=== PATIENT | female | born 1935 | race African-American/Black ===

== ENCOUNTER → 2016-12-28 | Outpatient (CLI) | payer MEDICARE ==
--- NOTE | 2016-12-28 10:53 | RAD ---
CT of the chest without contrast, 12/28/2016: History: Lung nodule Noncontrast scans were obtained with multiplanar reconstructions produced. Comparison is made to a study from 09/08/2004. There is calcific plaquing of the thoracic aorta without evidence of aneurysm. The heart is of normal size. There is a mildly enlarged subcarinal lymph node measuring 12 x 24 mm in diameter on the axial images. This was not present on an old study from 09/08/2004. Several other small mediastinal lymph nodes are seen without definite pathologic enlargement. There is an irregular spiculated parenchymal lesion in the lateral aspect of the left lower lobe as best seen on image 184 of series 5. It measures approximately 11 x 7 mm. It is partially solid. On the 2004 exam there was only a hazy groundglass opacity in this region. This lesion appears larger than on the 05/26/2016 CT abdomen study, although that may be due to the fact that the lesion was only partially visualized on the upper most slices of that abdomen study. There is a 2 to 3 mm nodule in the lateral aspect of the left upper lobe as seen on image 69 of series #5. It appears to be unchanged since the 2004 exam. There is a 4 mm perifissural nodule in the inferior aspect of the right upper lobe abutting the minor fissure as demonstrated on image 150 of series #5. This appears to be unchanged since the 2004 exam. There are a few scattered linear opacities in both lungs compatible with scars. These include a 8 x 3 mm opacity in the posterior costophrenic angle on the right as delineated on image 249 of series #5. Changes of a left mastectomy are evident. No axillary adenopathy is identified. IMPRESSION: 1. A small spiculated nodule in the left lower lobe has increased in size since 2003. A slowly growing neoplasm is a possibility. 2. There are couple of other stable tiny pulmonary nodules as well as linear parenchymal opacities probably representing scars. 3. A mildly enlarged subcarinal lymph node has developed since 2003. 4. PET/CT scanning may be useful for further evaluation. PQRS Compliance Statement: One or more of the following individualized dose reduction techniques were utilized for this examination: 1. Automated exposure control 2. Adjustment of the mA and/or kV according to patient size 3. Use of iterative reconstruction technique
--- NOTE | 2016-12-28 11:20 | RAD ---
EXAM: Pelvic sonogram. HISTORY: Pain. TECHNIQUE: Transabdominal and transvaginal sonographic imaging of the pelvis was performed. COMPARISON: None. FINDINGS: The transvaginal portion of the exam is technically limited. The uterus is retroverted and measures 5.8 x 3.5 x 2.7 cm. The endometrial stripe measures 4.3 cm transabdominally. The right ovary measures 1.8 x 1.8 x 1.4 cm transvaginally. The left ovary measures 1.5 x 1.6 x 1.1 cm transvaginally. There is blood flow within both ovaries. There is a 2.3 cm rounded hypoechoic structure along the junction of the lower uterine segment and vagina. There is no pelvic free fluid. IMPRESSION: 1. Technically limited exam. The pelvic structures not well seen transvaginally. The ovaries are unremarkable. 2. 2.3 cm rounded hypoechoic structure adjacent to the lower uterine segment and vagina. There is no posterior through transmission to suggest a cystic etiology. However, no internal blood flow is seen. Sonographic follow-up or pelvic MRI can be performed to confirm stability or for better characterization.
== END | disposition home or self-care (01) ==
LOC: US 09:27
PROVIDERS: ATTEND Family Medicine
DX: R91.1 Solitary pulmonary nodule (principal); I70.0 Atherosclerosis of aorta; R59.0 Localized enlarged lymph nodes
CPT/HCPCS: 71250; 76830; 76856

== ENCOUNTER → 2017-06-17 | Outpatient (CLI) | payer MEDICARE ==
--- NOTE | 2017-06-17 15:32 | RAD ---
Examination: Ultrasound left chest wall History: history of breast cancer, mastectomy, left chest wall pain Comparison: None available Findings: Ultrasound of the left chest inferior to the mastectomy scar demonstrate no definite evidence of mass or lesion. Left axillary area demonstrated no definite evidence of mass or lesion. Impression Negative findings. BI-RADS Category 1.
== END | disposition home or self-care (01) ==
LOC: US 13:40
PROVIDERS: ATTEND Physician Assistant
DX: R07.89 Other chest pain (principal); Z85.3 Personal history of malignant neoplasm of breast
CPT/HCPCS: 76641

== ENCOUNTER → 2017-11-07 | Outpatient (CLI) | payer MEDICARE ==
--- NOTE | 2017-11-08 08:38 | RAD ---
DATE: 11/07/2017 EXAM: MAMMO ABRAHAM SCREEN RT HISTORY: Routine screening COMPARISON: 11/03/2016 This study was interpreted with the benefit of Computerized Aided Detection (CAD). FINDINGS: Breast Density: HETERO The breast parenchyma Is heterogeneouslyy dense, which could reduce sensitivity of mammography. Breast parenchyma level C. There are no dominant suspicious masses, suspicious microcalcifications or evidence of architectural distortion. IMPRESSION: Negative mammogram BI-RADS CATEGORY: 1 NEGATIVE RECOMMENDED FOLLOW-UP: 12M 12 MONTH FOLLOW-UP PQRS compliance statement: Patient information was entered into a reminder system with a target due date 11/07/2018 for the next mammogram. Mammography is a sensitive method for finding small breast cancers, but it does not detect them all and is not a substitute for careful clinical examination. A negative mammogram does not negate a clinically suspicious finding and should not result in delay in biopsying a clinically suspicious abnormality. "Our facility is accredited by the [employer] Mammography Program."
== END | disposition home or self-care (01) ==
LOC: MAMMO 13:54
PROVIDERS: ATTEND Family Medicine
DX: Z12.31 Encounter for screening mammogram for malignant neoplasm of breast (principal); Z85.3 Personal history of malignant neoplasm of breast
CPT/HCPCS: 77063; 77067

== ENCOUNTER → 2018-09-18 | Outpatient (CLI) | payer MEDICARE ==
[2018-09-18 12:44] LABS: BASO % 1 % (0-3); EOS # 0.1 x10^3/uL (0.0-0.7); EOS % 3 % (0-3); HEMOGLOBIN 12.8 g/dL (12.0-15.5); LYMPH # 1.6 x10^3/uL (1.0-4.8); LYMPH % 36 % (24-48); MEAN CORPUSCULAR HEMOGLOBIN 29 pg (25-35); MEAN CORPUSCULAR HGB CONC 33 g/dL (31-37); MEAN CORPUSCULAR VOLUME 87 fL (79-100); MONO # 0.4 x10^3/uL (0.0-1.1); MONO % 8 % (0-9); NEUT # 2.4 x10^3uL (1.8-7.7); NEUT % 52 % (31-73); PLATELET COUNT 196 x10^3/uL (140-400); RED BLOOD COUNT 4.48 x10^6/uL (3.50-5.40); RED CELL DISTRIBUTION WIDTH 14.1 % (11.5-14.5); WHITE BLOOD COUNT 4.6 x10^3/uL (4.0-11.0)
[2018-09-18 12:55] LABS: ALBUMIN 3.5 g/dL (3.4-5.0); CALCIUM 9.4 mg/dL (8.5-10.1); GFR 64.2; TOTAL BILIRUBIN 0.5 mg/dL (0.2-1.0); TOTAL PROTEIN 7.1 g/dL (6.4-8.2)
== END | disposition home or self-care (01) ==
LOC: LAB 11:50
PROVIDERS: ATTEND Internal Medicine Hematology & Oncology
DX: C50.912 Malignant neoplasm of unspecified site of left female breast (principal); Z17.0 Estrogen receptor positive status [ER+]
CPT/HCPCS: 36415; 80053; 85025; 86300

== ENCOUNTER → 2018-11-16 | Outpatient (CLI) | payer MEDICARE ==
--- NOTE | 2018-11-16 15:05 | RAD ---
DATE: 11/16/2018 EXAM: MAMMO ABRAHAM SCREEN RT HISTORY: Previous left mastectomy COMPARISON: 11/07/2017 This study was interpreted with the benefit of Computerized Aided Detection (CAD). Breast Density: HETERO The breast parenchyma is heterogenously dense, which could reduce sensitivity of mammography. Breast parenchyma level C. FINDINGS: 2-D and 3-D tomosynthesis imaging was performed in CC and MLO projections. The fibroglandular pattern is heterogeneous and slightly nodular in character. No new or enlarging breast densities are seen. Benign type calcifications are present. No suspicious microcalcifications have developed. IMPRESSION: Stable mammograms without evidence of malignancy. BI-RADS CATEGORY: 2 BENIGN FINDING(S) RECOMMENDED FOLLOW-UP: 12M 12 MONTH FOLLOW-UP PQRS compliance statement: Patient information was entered into a reminder system with a target due date for the next mammogram. Mammography is a sensitive method for finding small breast cancers, but it does not detect them all and is not a substitute for careful clinical examination. A negative mammogram does not negate a clinically suspicious finding and should not result in delay in biopsying a clinically suspicious abnormality. "Our facility is accredited by the [employer] Mammography Program."
== END | disposition home or self-care (01) ==
LOC: MAMMO 12:38
PROVIDERS: ATTEND Family Medicine
DX: Z12.31 Encounter for screening mammogram for malignant neoplasm of breast (principal); Z85.3 Personal history of malignant neoplasm of breast; Z90.12 Acquired absence of left breast and nipple
CPT/HCPCS: 77063; 77067

== ENCOUNTER → 2019-01-31 | Outpatient (CLI) | payer MEDICARE ==
[2019-01-31 14:10] LABS: BASO # 0.1 x10^3/uL (0.0-0.2); BASO % 2 % (0-3); EOS # 0.1 x10^3/uL (0.0-0.7); EOS % 3 % (0-3); HEMATOCRIT 40.2 % (36.0-47.0); HEMOGLOBIN 13.1 g/dL (12.0-15.5); LYMPH # 1.7 x10^3/uL (1.0-4.8); LYMPH % 37 % (24-48); MEAN CORPUSCULAR HEMOGLOBIN 28 pg (25-35); MEAN CORPUSCULAR HGB CONC 33 g/dL (31-37); MEAN CORPUSCULAR VOLUME 87 fL (79-100); MONO # 0.3 x10^3/uL (0.0-1.1); MONO % 8 % (0-9); NEUT # 2.3 x10^3uL (1.8-7.7); NEUT % 50 % (31-73); PLATELET COUNT 184 x10^3/uL (140-400); RED BLOOD COUNT 4.61 x10^6/uL (3.50-5.40); RED CELL DISTRIBUTION WIDTH 14.6 % (11.5-14.5); WHITE BLOOD COUNT 4.5 x10^3/uL (4.0-11.0)
[2019-01-31 14:20] LABS: ALBUMIN 3.6 g/dL (3.4-5.0); CALCIUM 9.4 mg/dL (8.5-10.1); CREATININE 1.1 mg/dL (0.6-1.0); GFR 57.5; POTASSIUM 3.7 mmol/L (3.5-5.1); TOTAL BILIRUBIN 0.5 mg/dL (0.2-1.0); TOTAL PROTEIN 7.3 g/dL (6.4-8.2)
== END | disposition home or self-care (01) ==
LOC: LAB 12:58
PROVIDERS: ATTEND Internal Medicine Hematology & Oncology
DX: C50.912 Malignant neoplasm of unspecified site of left female breast (principal); Z17.0 Estrogen receptor positive status [ER+]
CPT/HCPCS: 36415; 80053; 85025; 86300

== ENCOUNTER → 2019-02-08 | Outpatient (CLI) | payer MEDICARE ==
[2019-02-08] MEDS: IOHEXOL 300 MG/ML 75 ML VIAL. IV ONE (11:02)
--- NOTE | 2019-02-08 18:05 | RAD ---
CT of the chest with contrast, 02/08/2019: HISTORY: Breast cancer, follow-up lung nodule Multidetector CT imaging was performed following an IV bolus injection of iodinated contrast material. Comparison is made to a study from 10/05/2018. There is an 8 mm spiculated nodule in the lateral aspect of the left lower lobe as seen on axial image 53 of series #4. A 4 mm subpleural nodule is noted posteriorly in the right lung base on image 68 of series #4. These appear unchanged since 10/05/2018, study as well as an old exam from 12/28/2016. Two tiny nodules in the lateral aspect of the left upper lobe seen on images 19 and 14 are also unchanged. No new pulmonary nodularity or consolidation is seen. There is no evidence of pleural fluid. Several small mediastinal lymph nodes are again seen. The right paratracheal nodes are of borderline size. These findings are unchanged. There is calcific plaquing of the thoracic aorta. The left breast is surgically absent. Surgical clips are present in the left axillary region. No axillary adenopathy is seen. IMPRESSION: 1. Stable small bilateral pulmonary nodules suggesting a benign etiology. 2. Stable mediastinal lymph nodes. 3. No new chest abnormality is detected. PQRS Compliance Statement: One or more of the following individualized dose reduction techniques were utilized for this examination: 1. Automated exposure control 2. Adjustment of the mA and/or kV according to patient size 3. Use of iterative reconstruction technique Electronically signed by: Delfin Delacruz MD (02/08/2019 6:02 PM) [facility]
== END | disposition home or self-care (01) ==
LOC: CT 10:25
PROVIDERS: ATTEND Internal Medicine Hematology & Oncology
DX: R91.8 Other nonspecific abnormal finding of lung field (principal); Z85.3 Personal history of malignant neoplasm of breast; N64.59 Other signs and symptoms in breast
CPT/HCPCS: 71260; Q9967

== ENCOUNTER → 2019-08-03 | Outpatient (CLI) | payer MEDICARE ==
[2019-08-03 17:10] LABS: BASO % 1 % (0-3); EOS # 0.2 x10^3/uL (0.0-0.7); EOS % 3 % (0-3); HEMOGLOBIN 13.3 g/dL (12.0-15.5); LYMPH # 1.9 x10^3/uL (1.0-4.8); LYMPH % 28 % (24-48); MEAN CORPUSCULAR HEMOGLOBIN 28 pg (25-35); MEAN CORPUSCULAR HGB CONC 32 g/dL (31-37); MEAN CORPUSCULAR VOLUME 89 fL (79-100); MONO # 0.5 x10^3/uL (0.0-1.1); MONO % 8 % (0-9); NEUT # 4.1 x10^3uL (1.8-7.7); NEUT % 61 % (31-73); PLATELET COUNT 214 x10^3/uL (140-400); RED BLOOD COUNT 4.72 x10^6/uL (3.50-5.40); RED CELL DISTRIBUTION WIDTH 13.9 % (11.5-14.5); WHITE BLOOD COUNT 6.7 x10^3/uL (4.0-11.0)
[2019-08-03 17:25] LABS: ALBUMIN 3.4 g/dL (3.4-5.0); ALBUMIN/GLOBULIN RATIO 0.9 (1.0-1.7); CALCIUM 9.5 mg/dL (8.5-10.1); CREATININE 0.9 mg/dL (0.6-1.0); GFR 72.4; POTASSIUM 3.5 mmol/L (3.5-5.1); TOTAL BILIRUBIN 0.3 mg/dL (0.2-1.0); TOTAL PROTEIN 7.1 g/dL (6.4-8.2)
== END | disposition home or self-care (01) ==
LOC: LAB 15:21
PROVIDERS: ATTEND Internal Medicine Hematology & Oncology
DX: Z08 Encounter for follow-up examination after completed treatment for malignant neoplasm (principal); Z85.3 Personal history of malignant neoplasm of breast
CPT/HCPCS: 36415; 80053; 85025; 86300

== ENCOUNTER → 2019-08-08 | Outpatient (CLI) | payer MEDICARE ==
[~2019-08-08] MED LIST: IOHEXOL 240 MG/ML 50ML VIAL. ONE; IOHEXOL 300 MG/ML 75 ML VIAL. IV ONE
--- NOTE | 2019-08-08 15:35 | RAD ---
EXAM: Abdomen and pelvis CT without intravenous contrast. HISTORY: Right lower quadrant pain. TECHNIQUE: Computed tomographic images of the abdomen and pelvis were obtained without intravenous contrast. Multiplanar reformatting was performed. *One or more of the following individualized dose reduction techniques were utilized for this examination: 1. Automated exposure control. 2. Adjustment of the mA and/or kV according to patient size. 3. Use of iterative reconstruction technique. COMPARISON: 02/08/2019. FINDINGS: Evaluation of the lower thorax demonstrates a few groundglass and nodular opacities, including a 1.2 cm spiculated nodule within the left lower lobe. These are described on the chest CT report; the same date. There is slight bronchial wall thickening. There is scarring within the lingula. There is a small hiatal hernia. No hepatic lesion is seen. The gallbladder, pancreas, spleen and adrenal glands are unremarkable. There is slight renal cortical lobulation likely due to scarring. No suspicious renal lesion or hydronephrosis is seen. There is colonic diverticulosis. There is no convincing diverticulitis. There is no bowel obstruction. There is aortobiiliac atherosclerosis. There is calcification along the right lateral aspect of the uterine fundus, likely associated with the right ovary or calcified uterine fibroid. The urinary bladder is unremarkable. There is no lymphadenopathy. There is degenerative change involving the spine. This includes disc bulges, facet arthropathy, endplate osteophytosis and mild listhesis at multiple levels. There is severe central canal stenosis due to degenerative change and slight epidural lipomatosis at L4-L5. There is surgical material within the right lower ventral abdominal wall likely due to prior hernia repair. IMPRESSION: 1. Colonic diverticulosis. 2. Pulmonary nodules and groundglass opacities. Please refer to the separate report for the chest CT on the same date for characterization of these findings. 3. Small hiatal hernia and findings likely due to prior right inguinal hernia repair. 4. Multilevel degenerative change involving the lumbar spine, primarily at L4-L5. Electronically signed by: Alexia Dover MD (08/08/2019 3:32 PM) [place] [id number]
== END | disposition home or self-care (01) ==
LOC: CT 09:49
PROVIDERS: ATTEND Family Medicine
DX: K57.30 Diverticulosis of large intestine without perforation or abscess without bleeding (principal); K44.9 Diaphragmatic hernia without obstruction or gangrene; J44.9 Chronic obstructive pulmonary disease, unspecified; R91.8 Other nonspecific abnormal finding of lung field; I70.0 Atherosclerosis of aorta; I70.8 Atherosclerosis of other arteries; M48.061 Spinal stenosis, lumbar region without neurogenic claudication; E88.2 Lipomatosis, not elsewhere classified; M46.90 Unspecified inflammatory spondylopathy, site unspecified; M25.78 Osteophyte, vertebrae; I10 Essential (primary) hypertension; Z90.49 Acquired absence of other specified parts of digestive tract
CPT/HCPCS: 74176

== ENCOUNTER → 2019-11-01 | Outpatient (CLI) | payer MEDICARE ==
--- NOTE | 2019-11-01 13:36 | RAD ---
2 views the right hip and a single AP view the pelvis without comparison for right hip pain. FINDINGS: There is no fracture, dislocation, or acute osseous abnormality identified. Joints and soft tissues are grossly unremarkable though there is mild osteoarthritis of both hips. Degenerative changes are seen in the lumbosacral region as well, with a transitional lumbosacral vertebral body. IMPRESSION: 1. No acute osseous abnormality. Electronically signed by: Syd Lozano MD (11/01/2019 1:32 PM) [id number]
== END | disposition home or self-care (01) ==
LOC: CT 12:52
PROVIDERS: ATTEND Internal Medicine Hematology & Oncology
DX: M16.0 Bilateral primary osteoarthritis of hip (principal); M47.817 Spondylosis without myelopathy or radiculopathy, lumbosacral region
CPT/HCPCS: 73502

== ENCOUNTER → 2019-11-20 | Outpatient (CLI) | payer MEDICARE ==
--- NOTE | 2019-11-21 18:23 | RAD ---
Examination: MAMMO ABRAHAM SCREEN RT History: Routine screening. Left mastectomy in 2000. Comparison/Correlation: 10/28/2015, 11/03/2016, 11/07/2017, 11/16/2018 mammographic exams Findings: MLO and CC images of the right breast were obtained. 3-D imaging was also performed. Scattered fibroglandular densities are present. No suspicious calcification, masses, or distortion. Impression: BI-RADS Category 1-negative. Annual mammographic evaluation recommended. Electronically signed by: Dedrick Hood MD (11/21/2019 6:20 PM) [id number]
== END | disposition home or self-care (01) ==
LOC: MAMMO 12:39
PROVIDERS: ATTEND Family Medicine
DX: Z12.31 Encounter for screening mammogram for malignant neoplasm of breast (principal); Z90.12 Acquired absence of left breast and nipple
CPT/HCPCS: 77063; 77067

== ENCOUNTER → 2020-03-14 | Outpatient (CLI) | payer MEDICARE ==
[~2020-03-14] MED LIST changes: -IOHEXOL 240 MG/ML 50ML VIAL. ONE
[2020-03-14 14:08] LABS: ALBUMIN 3.6 g/dL (3.4-5.0); CALCIUM 9.6 mg/dL (8.5-10.1); GFR 64.1; POTASSIUM 3.9 mmol/L (3.5-5.1); TOTAL BILIRUBIN 0.6 mg/dL (0.2-1.0); TOTAL PROTEIN 7.2 g/dL (6.4-8.2)
--- NOTE | 2020-03-14 15:57 | RAD ---
CT scan of the chest with contrast 03/14/2020 CLINICAL HISTORY: History of pulmonary nodule. TECHNIQUE: After the intravenous administration of 75 cc of 350, contiguous, 3 mm axial sections were obtained through the chest and upper abdomen. One or more of the following individualized dose reduction techniques were utilized for this study: 1. Automated exposure control. 2. Adjustment of the mA and/or kV according to patient size. 3. Use of iterative reconstruction technique. FINDINGS: Comparison study is dated 08/08/2019. The patient is post left mastectomy. Surgical clips are seen within the left axilla. No hilar, mediastinal or axillary lymphadenopathy is seen. Atherosclerotic calcification of the thoracic aorta and its branches is noted. The thoracic aorta tapers normally. The heart is normal in size. A 1.2 cm irregular nodule is seen within the left lower lobe which is unchanged from the previous examination. A 3 mm nodule is seen lateral to this which is unchanged. A 6 mm groundglass opacity is seen involving the right upper lobe, unchanged. A 7 mm pleural-based nodule is seen involving the inferior aspect of the right lower lobe. This is unchanged. A 2 mm nodule seen involving the left upper lobe, unchanged. A 4 mm nodule is seen within the left lower lobe which is unchanged. No new nodule is seen. No area of consolidation is noted. No pneumothorax or pleural effusion is seen. Images through the upper abdomen demonstrate atherosclerotic calcification of the abdominal aorta and its branches. Degenerative changes are seen involving the thoracic spine. IMPRESSION: Stable CT appearance of the nodules involving both lungs as discussed above. No new pulmonary nodule is seen. Electronically signed by: Keith Tovar MD (03/14/2020 3:54 PM) [id number]
== END ==
LOC: LAB 13:10
PROVIDERS: ATTEND Internal Medicine Hematology & Oncology
DX: R91.8 Other nonspecific abnormal finding of lung field (principal); I70.0 Atherosclerosis of aorta; Z90.12 Acquired absence of left breast and nipple; Z85.3 Personal history of malignant neoplasm of breast
CPT/HCPCS: 36415; 71260; 80053; Q9967

== ENCOUNTER → 2020-04-25 | Outpatient (CLI) | payer MEDICARE ==
--- NOTE | 2020-04-25 17:48 | RAD ---
EXAM: Frontal pelvis with bilateral two-view hip. HISTORY: Bilateral hip pain. COMPARISON: 11/01/2019. FINDINGS: No fractures are identified within the pelvis or either proximal femur. The joint spaces of both hips are maintained. There is mildly decreased femoral head/neck offset anteriorly bilaterally. IMPRESSION: 1. Correlate for mild femoroacetabular impingement anteriorly bilaterally. Electronically signed by: Butch Henriquez MD (04/25/2020 5:45 PM) [id number]
== END ==
LOC: DXRAD 11:03
PROVIDERS: ATTEND Physician Assistant
DX: M25.552 Pain in left hip (principal); M25.551 Pain in right hip
CPT/HCPCS: 73521

== ENCOUNTER → 2020-09-05 | Outpatient (CLI) | payer MEDICARE ==
[2020-09-05 13:02] LABS: BASO % 1 % (0-3); EOS # 0.2 x10^3/uL (0.0-0.7); EOS % 3 % (0-3); HEMATOCRIT 40.3 % (36.0-47.0); LYMPH # 1.8 x10^3/uL (1.0-4.8); LYMPH % 34 % (24-48); MEAN CORPUSCULAR HEMOGLOBIN 28 pg (25-35); MEAN CORPUSCULAR HGB CONC 32 g/dL (31-37); MEAN CORPUSCULAR VOLUME 88 fL (79-100); MONO # 0.4 x10^3/uL (0.0-1.1); MONO % 7 % (0-9); NEUT % 56 % (31-73); PLATELET COUNT 185 x10^3/uL (140-400); RED CELL DISTRIBUTION WIDTH 14.2 % (11.5-14.5); WHITE BLOOD COUNT 5.4 x10^3/uL (4.0-11.0)
[2020-09-05 13:06] LABS: ALBUMIN 3.6 g/dL (3.4-5.0); ALBUMIN/GLOBULIN RATIO 0.9 (1.0-1.7); CALCIUM 9.3 mg/dL (8.5-10.1); GFR 63.9; POTASSIUM 3.8 mmol/L (3.5-5.1); TOTAL BILIRUBIN 0.4 mg/dL (0.2-1.0); TOTAL PROTEIN 7.4 g/dL (6.4-8.2)
[2020-09-05] MEDS: IOHEXOL 300 MG/ML 75 ML VIAL. IV ONE (13:16)
--- NOTE | 2020-09-06 11:57 | RAD ---
EXAM: CT CHEST WITH CONTRAST HISTORY: History of breast cancer, pulmonary nodule COMPARISON: CT chest 03/14/2020 and 02/08/2019. TECHNIQUE: Helical CT of the chest performed after the administration of 75 mL Omnipaque 350 intravenous contrast. Coronal and sagittal reformats were obtained. One or more of the following individualized dose reduction techniques were utilized for this examination: 1. Automated exposure control 2. Adjustment of the mA and/or kV according to patient size 3. Use of iterative reconstruction technique. FINDINGS: Thyroid gland and thoracic inlet: Normal. Heart and great vessels: Heart is normal in size. There is no pericardial effusion. The thoracic aorta is normal in caliber. There is mild calcified aortic atherosclerosis. Central pulmonary arteries are clear. Mediastinum and mckay: Small nonspecific mediastinal and hilar lymph nodes are unchanged. Lungs and pleura: A spiculated pulmonary nodule in the left lower lobe measuring 6 x 4 mm is unchanged (image 4 series 4). A 7 mm pleural-based nodule in the inferior right lower lobe is unchanged (image 69 series 4). A 6 mm groundglass nodule in the subpleural right upper lobe is unchanged (image 43, series 4). Multiple other small, predominantly subpleural nodules throughout both lungs measuring 2 to 4 mm in diameter are unchanged. There is no new pulmonary nodule. No pleural effusion. Chest wall and axillae: Surgical changes of left mastectomy and axillary node dissection are noted. There is no axillary lymphadenopathy. Upper abdomen: Kidneys are lobulated in appearance, unchanged. Upper abdomen is otherwise unremarkable. Bones: Unchanged sclerotic lesion in the left lateral ninth rib (image 76 series 4 and image 10 series 6). No new osseous abnormality. IMPRESSION: 1. Unchanged 6 mm spiculated pulmonary nodule in the left lower lobe and other small pulmonary nodules. 2. Unchanged sclerotic lesion in the left lateral ninth rib. Electronically signed by: Ana M Garcia MD (09/06/2020 11:54 AM) [id number]
== END ==
LOC: CT 12:18
PROVIDERS: ATTEND Internal Medicine Hematology & Oncology
DX: R91.1 Solitary pulmonary nodule (principal); M89.9 Disorder of bone, unspecified; Z90.12 Acquired absence of left breast and nipple; Z85.3 Personal history of malignant neoplasm of breast
CPT/HCPCS: 71260; 80053; 85025; 86300; Q9967; 36415

== ENCOUNTER → 2020-10-07 | Outpatient (CLI) | payer MEDICARE ==
--- NOTE | 2020-10-07 14:06 | RAD ---
EXAM: Nuclear bone scan. HISTORY: Breast cancer. COMPARISON: Chest CT dated 09/05/2020 and abdomen and pelvis CT dated 08/08/2019. TECHNIQUE: Following the intravenous injection of 25.3 mCi of Tc 99m labeled methylene diphosphonate (MDP), whole body imaging was performed. FINDINGS: There is no abnormal tracer activity to suggest osseous metastatic disease. There is increa sed activity overlying the right facet joint at L4-L5, likely degenerative in etiology. There is also suspected degenerative radiotracer activity involving the left first carpal metacarpal joint, latera l compartment of the right knee and bilateral first metatarsal phalangeal joints. There is scoliosis. There is expected tracer activity within the bowel and renal collecting system. IMPRESSION: 1. No convincing radiotracer activity to suggest osseous metastatic disease. There is no correlate fo r a reported sclerotic lesion within the left lateral ninth rib. 2. Suspected degenerative activity involving the right facet joint at L4-L5, left first carpal metaca rpal joint, lateral compartment of the right knee and bilateral first metatarsal phalangeal joints. Electronically signed by: Alexia Dover MD (10/07/2020 2:04 PM) [id number]
== END ==
LOC: NM 09:31
PROVIDERS: ATTEND Internal Medicine Hematology & Oncology
DX: C50.912 Malignant neoplasm of unspecified site of left female breast (principal); M41.9 Scoliosis, unspecified; M85.80 Other specified disorders of bone density and structure, unspecified site; Z17.0 Estrogen receptor positive status [ER+]
CPT/HCPCS: 78306; A9503

== ENCOUNTER → 2020-11-26 | Outpatient (CLI) | payer MEDICARE ==
--- NOTE | 2020-11-27 09:18 | RAD ---
DATE: 11/26/2020 3:00 PM EXAM: MAMMO ABRAHAM SCREEN RT HISTORY: Screening . History of left mastectomy 2000. COMPARISON: 11/20/2019, 11/16/2018 CC and MLO views of the right breast were performed. Breast tomosynthesis was also performed in CC and MLO projections. This study was interpreted with the benefit of Computerized Aided Detection (CAD). FINDINGS: Breast Density: SCATTERED The breast parenchyma shows scattered fibroglandular densities. Breast parenchyma level B No suspicious masses, microcalcifications or architectural distortion is present to suggest malignancy. The visualized axilla is unremarkable. IMPRESSION: No mammographic evidence of malignancy. BI-RADS CATEGORY: 1 NEGATIVE RECOMMENDED FOLLOW-UP: 12M 12 MONTH FOLLOW-UP Annual screening mammography is recommended, unless clinically indicated sooner based on symptoms or change in physical exam. PQRS compliance statement: Patient information was entered into a reminder system with a target due date for the next mammogram. Mammography is a sensitive method for finding small breast cancers, but it does not detect them all and is not a substitute for careful clinical examination. A negative mammogram does not negate a clinically suspicious finding and should not result in delay in biopsying a clinically suspicious abnormality. "Our facility is accredited by the [employer] Mammography Program."
== END ==
LOC: MAMMO 14:53
PROVIDERS: ATTEND Family Medicine
DX: Z12.31 Encounter for screening mammogram for malignant neoplasm of breast (principal); Z90.12 Acquired absence of left breast and nipple
CPT/HCPCS: 77063; 77067

== ENCOUNTER → 2021-03-10 | Outpatient (CLI) | payer MEDICARE ==
[2021-03-10 13:50] LABS: BASO # 0.1 x10^3/uL (0.0-0.2); BASO % 1 % (0-3); EOS # 0.2 x10^3/uL (0.0-0.7); EOS % 3 % (0-3); HEMATOCRIT 39.5 % (36.0-47.0); HEMOGLOBIN 12.9 g/dL (12.0-15.5); LYMPH # 2.3 x10^3/uL (1.0-4.8); LYMPH % 33 % (24-48); MEAN CORPUSCULAR HEMOGLOBIN 29 pg (25-35); MEAN CORPUSCULAR HGB CONC 33 g/dL (31-37); MEAN CORPUSCULAR VOLUME 89 fL (79-100); MONO # 0.5 x10^3/uL (0.0-1.1); MONO % 7 % (0-9); NEUT # 3.8 x10^3uL (1.8-7.7); NEUT % 56 % (31-73); PLATELET COUNT 202 x10^3/uL (140-400); RED BLOOD COUNT 4.44 x10^6/uL (3.50-5.40); RED CELL DISTRIBUTION WIDTH 13.7 % (11.5-14.5); WHITE BLOOD COUNT 6.8 x10^3/uL (4.0-11.0)
[2021-03-10 14:06] LABS: CALCIUM 9.5 mg/dL (8.5-10.1); GFR 63.9; POTASSIUM 4.1 mmol/L (3.5-5.1)
[2021-03-10 14:10] LABS: ALBUMIN 3.5 g/dL (3.4-5.0); TOTAL BILIRUBIN 0.7 mg/dL (0.2-1.0); TOTAL PROTEIN 7.1 g/dL (6.4-8.2)
--- NOTE | 2021-03-10 16:42 | RAD ---
Examination: CT chest with IV contrast HISTORY: History of follow-up breast cancer COMPARISON: 09/05/2020 TECHNIQUE: Axial CT images of chest were performed with IV contrast. Coronal and sagittal reformats a re performed. Exposure: One or more of the following individualized dose reduction techniques were utilized for thi s examination: 1. Automated exposure control 2. Adjustment of the mA and/or kV according to patient size 3. Use of iterative reconstruction technique FINDINGS: The visualized thyroid gland grossly appears unremarkable. The central airways are patent. Mild aortic atherosclerosis No evidence for significant mediastinal lymphadenopathy. There is collapse right middle lobe of the lung with consolidative changes of the right middle lobe o f the lung could be due to secretions in the right middle lobe bronchial branches or endobronchial le chente. 8 mm nodule right lower lobe of lung abutting the right hemidiaphragm. The previously visualize d 1 cm spiculated nodule left lower lobe of the lung unchanged. The liver, spleen, adrenals grossly a ppears unremarkable. Left mastectomy changes. Mild degenerative changes thoracic spine. IMPRESSION: 1. Collapse right middle lobe of the lung with consolidative changes of the right middle lobe of the lung could be due to secretions in the right middle lobe bronchial branches or endobronchial lesion. 2. 8 mm nodule right lower lobe of lung abutting the right hemidiaphragm. The previously visualized 1 cm spiculated nodule left lower lobe of the lung unchanged. Consider PET/CT scan. Electronically signed by: Quique Croft MD (03/10/2021 4:40 PM) [id number]
== END ==
LOC: CT 12:43
PROVIDERS: ATTEND Internal Medicine Hematology & Oncology
DX: C50.912 Malignant neoplasm of unspecified site of left female breast (principal); M85.80 Other specified disorders of bone density and structure, unspecified site; Z17.0 Estrogen receptor positive status [ER+]
CPT/HCPCS: 36415; 71260; 80053; 85025; 86300; Q9967

== ENCOUNTER → 2021-10-23 | Outpatient (CLI) | payer MEDICARE ==
[~2021-10-23] MED LIST changes: -IOHEXOL 300 MG/ML 75 ML VIAL. IV ONE; +IOHEXOL 350 MG/ML 100 ML VIAL. IV ONE
[2021-10-23 15:56] LABS: BASO % 1 % (0-3); EOS # 0.1 x10^3/uL (0.0-0.7); EOS % 2 % (0-3); HEMATOCRIT 44.2 % (36.0-47.0); LYMPH # 2.1 x10^3/uL (1.0-4.8); LYMPH % 31 % (24-48); MEAN CORPUSCULAR HEMOGLOBIN 29 pg (25-35); MEAN CORPUSCULAR HGB CONC 32 g/dL (31-37); MEAN CORPUSCULAR VOLUME 90 fL (79-100); MONO # 0.4 x10^3/uL (0.0-1.1); MONO % 6 % (0-9); NEUT # 4.2 x10^3uL (1.8-7.7); NEUT % 61 % (31-73); PLATELET COUNT 203 x10^3/uL (140-400); RED BLOOD COUNT 4.91 x10^6/uL (3.50-5.40); RED CELL DISTRIBUTION WIDTH 14.6 % (11.5-14.5); WHITE BLOOD COUNT 6.8 x10^3/uL (4.0-11.0)
[2021-10-23 16:08] LABS: CALCIUM 9.8 mg/dL (8.5-10.1); GFR 63.8; POTASSIUM 4.1 mmol/L (3.5-5.1)
--- NOTE | 2021-10-23 21:35 | RAD ---
Study: CT CHEST WITH CONTRAST - PULMONARY ANGIOGRAM History: Tachycardia, history of neoplasm Comparison: CT chest 03/10/2021 Technique: Helical CT of the chest performed after the administration of 100 mL Omnipaque 350 intrav enous contrast and timed for angiographic evaluation of the pulmonary arteries per PE protocol. Coron al and sagittal 3D MIP reformations were obtained. One or more of the following individualized dose reduction techniques were utilized for this examinat ion: 1. Automated exposure control 2. Adjustment of the mA and/or kV according to patient size 3. Use of iterative reconstruction technique. Findings: Pulmonary Arteries: Contrast bolus is adequate. There is no acute pulmonary embolism. Heart/Systemic Vasculature: The heart is normal in size. The thoracic aorta is normal in caliber. The re is no aortic dissection. Mild calcified aortic atherosclerosis. Mediastinum: No mediastinal or hilar lymphadenopathy. Lungs: Unchanged 8 x 6 mm nodule in the left lower lobe (image 82, series 4). Unchanged 6 mm nodule i n the right lower lobe. Atelectasis in the right middle lobe has resolved. Confluent opacities in the inferior lingula have mildly increased and are likely atelectasis. There are a few additional small scattered pulmonary nodules measuring 3 to 4 mm. Mild centrilobular emphysema. There is airway wall t hickening. No pleural effusion or pneumothorax. Neck/Axilla/Body Wall: No axillary lymphadenopathy. Surgical changes of left mastectomy. Upper Abdomen: Unremarkable. Bones: No acute osseous abnormality. IMPRESSION: 1. No acute pulmonary embolism. 2. Unchanged 8 mm spiculated nodule in the left lower lobe and 6 mm nodule in the right lower lobe. A few additional small scattered pulmonary nodules are also unchanged. Recommend continued surveillan ce. 3. Mild centrilobular emphysema. Electronically signed by: Ana M Garcia MD (10/23/2021 9:33 PM) [id number]
== END ==
LOC: RAD 15:16
PROVIDERS: ATTEND Family Medicine
DX: J43.2 Centrilobular emphysema (principal); R91.8 Other nonspecific abnormal finding of lung field; I70.0 Atherosclerosis of aorta; R00.0 Tachycardia, unspecified; M81.0 Age-related osteoporosis without current pathological fracture; Z85.3 Personal history of malignant neoplasm of breast
CPT/HCPCS: 36415; 71275; 80048; 84443; 85025; Q9967

== ENCOUNTER → 2021-12-01 | Outpatient (CLI) | payer MEDICARE ==
--- NOTE | 2021-12-01 14:27 | RAD ---
INDICATION: 86 years of age asymptomatic female patient presents for screening mammography. History o f left mastectomy TECHNIQUE: Full field craniocaudal and mediolateral oblique images of the right breast were obtained using digital technique with tomosynthesis and also analyzed with computer-aided detection software. COMPARISON: Prior mammographic imaging dating back to 11/26/2020. BREAST COMPOSITION: Category B: There are scattered fibroglandular densities. FINDINGS: No suspicious masses, microcalcifications or architectural distortion is present to suggest malignanc y. The visualized axillae are unremarkable. IMPRESSION: No mammographic evidence of malignancy. RECOMMENDATION: Annual screening mammography is recommended, unless clinically indicated sooner based on symptoms or change in physical exam. BIRADS 1: NEGATIVE This study was interpreted with the benefit of Computerized Aided Detection (CAD). Patient information is entered into the reminder system with a target due date for the next screening mammogram. Mammography is the most sensitive method for finding small breast cancers, but it does not detect the m all and is not a substitute for careful clinical examination. A negative mammogram does not negate a clinically suspicious finding and should not result in delay in biopsying a clinically suspicious a bnormality. "Our facility is accredited by the [employer] Mammography Program." Electronically signed by: Nash Hartman DO (12/01/2021 2:25 PM) [id number]
--- NOTE | 2021-12-01 18:09 | RAD ---
DXA BONE DENSITY AXIAL History: Postmenopausal Comparison: 11/18/2016 TECHNIQUE: Dual energy x-ray absorptiometry of the lumbar spine and right hip was performed. T-score of average bone mineral density based was calculated based on standard deviations above or below the expected young adult normal value. Diagnostic definitions were established by the [employer]. FINDINGS: The average bone mineral density associated with L1-L4 is 1.257 g/cm^2, corresponding with a T-score of 0.6. There is a 3.7% increase from 2017 baseline. The average total bone mineral density associated with right hip is 0.888 g/cm^2, corresponding with a T-score of -0.5. There is a -2.5% decreased from 2017 baseline. The bone mineral density at the rig ht femoral neck is 0.784 g/sq cm corresponding to a T score of -1.3. Refer to the worksheets for full detail. IMPRESSION: 1. Osteopenia. Right femoral neck bone mineral density yields a T-score between -1.0 and -2.5. Fractu re risk is increased. Electronically signed by: Miguel French MD (12/01/2021 6:07 PM) [id number]
== END ==
LOC: MAMMO 12:09
PROVIDERS: ATTEND Family Medicine
DX: Z12.31 Encounter for screening mammogram for malignant neoplasm of breast (principal); M85.88 Other specified disorders of bone density and structure, other site; Z78.0 Asymptomatic menopausal state; Z85.3 Personal history of malignant neoplasm of breast
CPT/HCPCS: 77063; 77067; 77080

== ENCOUNTER → 2021-12-14 | Outpatient (CLI) | payer MEDICARE ==
[2021-12-14] MEDS: IOHEXOL 300 MG/ML 75 ML VIAL. IV ONE (14:20)
--- NOTE | 2021-12-14 15:06 | RAD ---
EXAM: Chest CT with intravenous contrast. HISTORY: Breast cancer. TECHNIQUE: Computed tomographic images of the chest were obtained following the administration of int ravenous contrast. Multiplanar reformatting was performed. *One or more of the following individualized dose reduction techniques were utilized for this examina tion: 1. Automated exposure control. 2. Adjustment of the mA and/or kV according to patient size. 3. Use of iterative reconstruction technique. COMPARISON: 10/23/2021 and 03/14/2020. FINDINGS: The heart is normal in size. The aorta is normal in caliber. No pathologically enlarged med iastinal or hilar lymph node is seen. There is evidence of left axillary lymph node dissection. There are left mastectomy changes. There is no pneumothorax or pleural effusion. There is a stable tiny 3 mm benign-appearing pleural-based nodule within the medial left upper lobe. There is a stable 2 mm nodule within the lateral left upper lobe. There are few additional smaller pl eural-based nodules within the left upper lobe. There is a stable 8 mm spiculated nodule within the l ateral left lower lobe. There is a stable 6 mm right basilar pleural-based nodule. There are few kandace tional 2 mm right basilar pleural-based opacities. There is a stable 3 mm groundglass nodule along th e right minor pleural fissure, likely a fissural lymph node. There is mild emphysema. No hepatic lesion is seen. The visualized portions the gallbladder, pancreas, spleen and adrenal glan ds are unremarkable. There is renal cortical scarring. There is colonic diverticulosis. There is no a cute or suspicious osseous finding. IMPRESSION: 1. Multiple bilateral pulmonary nodules, the largest of which is spiculated and measures 8 mm within the left lower lobe. The nearly two-year course of stability favors benignity. Continued follow-up is recommended in approximately 12 months. 2. Mild emphysema. 3. No acute thoracic finding. Electronically signed by: Alexia Dover MD (12/14/2021 3:04 PM) [id number]
== END ==
LOC: CT 13:50
PROVIDERS: ATTEND Internal Medicine Hematology & Oncology
DX: J43.9 Emphysema, unspecified (principal); J98.11 Atelectasis; R91.8 Other nonspecific abnormal finding of lung field; K57.30 Diverticulosis of large intestine without perforation or abscess without bleeding; N28.89 Other specified disorders of kidney and ureter; Z85.3 Personal history of malignant neoplasm of breast
CPT/HCPCS: 71260; Q9967